=== PATIENT | male | born 1965 | race Caucasian/White ===

== ENCOUNTER 2021-01-10 07:42 | Emergency (ER) | payer MEDICAID, OTHER ==
[~2021-01-10] VITALS: Ht 167.6 cm; Wt 70.0 kg
[2021-01-10] MEDS ORDERED: ONDANSETRON HCL 4MG/2ML INJ IV STA (08:32)
[2021-01-10] MEDS ORDERED: MORPHINE SULFATE 4 MG/ML CPJ (NOT FOR IM USE) IV STA (08:32)
[2021-01-10] MEDS ORDERED: KETOROLAC 30MG/ML VIAL IV STA (08:32)
[2021-01-10] MEDS ORDERED: SODIUM CHLORIDE 0.9% 1,000 ML IV ONE (08:45)
[2021-01-10 08:52] LABS: BASOPHILS % 1.1 % (0.0-2.0); HEMATOCRIT. 39.7 % (42.0-52.0); HEMOGLOBIN. 13.5 g/dL (14.0-18.0); LYMPHOCYTES % 39.1 % (20.0-50.0); MEAN CORPUSCULAR HEMOGLOBIN 37.5 pg (28.0-32.0); MEAN CORPUSCULAR VOLUME 110.6 fL (80.0-94.0); MEAN PLATELET VOLUME 7.4 fl (7.4-10.4); MONOCYTES % 12.5 % (2.0-8.0); NEUTROPHILS % 46.3 % (40.0-76.0); PLATELET 315 x1000/uL (130-400); RED BLOOD CELL COUNT 3.59 mill/uL (4.7-6.1); RED CELL DISTRIBUTION WIDTH 15.3 % (11.6-14.6)
[2021-01-10] MEDS ORDERED: MORPHINE SULFATE 2 MG/ML CPJ (NOT FOR IM USE) IV STA (08:57)
[2021-01-10 08:59] LABS: CHLORIDE 105 mEq/L (98-107)
[2021-01-10 09:09] LABS: CLARITY URINE TURBID (CLEAR); COLOR URINE DK YELLOW (YELLOW); KETONES URINE NEGATIVE (NEGATIVE); LEUKOCYTE ESTERASE URINE NEGATIVE (NEGATIVE); NITRITE URINE NEGATIVE (NEGATIVE); OCCULT BLOOD URINE NEGATIVE (NEGATIVE); PROTEIN URINE TRACE (NEGATIVE); SPECIFIC GRAVITY URINE 1.048 (1.005-1.030)
[2021-01-10 09:38] LABS: PLATELET ESTIMATE NORMAL
[2021-01-10] MEDS ORDERED: HYDR-4001 MT (11:50)
[2021-01-10] MEDS ORDERED: IBUP-2028 MT (11:50)
[2021-01-10] MEDS ORDERED: TAMS-11 MT (11:50)
[2021-01-10 12:10] VITALS: BP 105/75
== END 2021-01-10 12:10 | disposition home or self-care (01) ==
LOC: ER 07:42
DX: N20.0 Calculus of kidney (principal)
CPT/HCPCS: 36415; 74176; 80053; 81003; 83690; 85025; 96361; 96374; 96375; 99284; J1885; J2270; J2405; J7030

== ENCOUNTER 2021-01-11 00:55 | Emergency (ER) | payer MEDICAID, OTHER ==
[~2021-01-11] VITALS: Ht 175.3 cm; Wt 77.0 kg
[~2021-01-11 00:55] MED LIST: HYDR-4001 MT; IBUP-2028 MT; TAMS-11 MT
[2021-01-11] MEDS ORDERED: KETOROLAC 30MG/ML VIAL IV STA (02:21)
[2021-01-11] MEDS ORDERED: ONDANSETRON HCL 4MG/2ML INJ IV STA (02:21)
[2021-01-11] MEDS ORDERED: MORPHINE SULFATE 4 MG/ML CPJ (NOT FOR IM USE) IV STA (02:21)
[2021-01-11] MEDS ORDERED: SODIUM CHLORIDE 0.9% 1,000 ML IV ONE (02:30)
[2021-01-11] MEDS ORDERED: MORPHINE SULFATE 2 MG/ML CPJ (NOT FOR IM USE) IV SCH (02:45)
[2021-01-11 03:40] VITALS: BP 132/78
== END 2021-01-11 03:50 | disposition home or self-care (01) ==
LOC: ER 00:55
DX: N23 Unspecified renal colic (principal)
CPT/HCPCS: 96361; 96374; 96375; 99284; J1885; J2270; J2405; J7030